=== PATIENT | female | born 1980 | race Caucasian/White ===

== ENCOUNTER 2017-02-23 13:00 | Emergency (ER) | payer MEDICAID ==
[~2017-02-23] VITALS: Ht 149.9 cm; Wt 48.0 kg
[2017-02-23 13:00] VITALS: BP 132/73; PULSE 120; RESP 16; TEMP 97.9; O2SAT 100
[~2017-02-23 13:00] MED LIST: CHLO10 PO; METH10TA PO; OXYC1SOL5 PO; PRENCAP6 PO
[2017-02-23] MEDS ORDERED: NALOXONE HCL 2 MG/2 ML VIAL ONE (13:04)
[2017-02-23 13:09] VITALS: O2SAT 100
[2017-02-23] MEDS ORDERED: SODIUM CHLOR 0.9% 1000 ML INJ 1,000 ML IV ONE (13:10)
[2017-02-23] MEDS ORDERED: SODIUM CHLORIDE 0.9% FLUSH 10 ML FLUSH IVF PRN (13:15)
--- NOTE | 2017-02-23 13:22 | PD ---
HPI Chief Complaint: Altered Mental Status Time Seen by Provider: 13:10 Travel History International Travel<30 days: No Contact w/Intl Traveler<30days: No Traveled to known affect area: No History of Present Illness HPI Middle age white female patient presents to the ER today dropped off by her friend, lethargic, slow breathing, barely responsive to pain. Patient was given Narcan in the ER with response with 4 mg. She is now awake and oriented in the ER, denies any ingestions, denies any other issues. She states that the last thing she remembered was talking to her friend in the car. Modifying Factors: None Associated Signs & Symptoms: Altered mental status, suspected overdose Risk Factors: None PFSH Past Medical History Medical History: Denies Significant Hx Influenza Vaccination: No ?: Unknown LMP: states she doesnt get period, has jonny : 2 Para: 2 Past Surgical History Surgical History: No Previous Surgery Section: Yes Social History Alcohol Use: No Tobacco Use: Yes (1 ppd) Substance Use: Yes (xanax) Allergies-Medications (Allergen,Severity, Reaction): Coded Allergies: No Known Allergies (Unverified , 02/23/17) Reported Meds & Prescriptions Reported Meds & Active Scripts Active No Active Prescriptions or Reported Medications Review of Systems ROS Limitations: Altered Mental Status Physical Exam Narrative GENERAL: Well-developed middle age white female patient who is obtunded, unresponsive to sternal rub. SKIN: Focused skin assessment warm/dry. There is notable track lopez to the left hand. HEAD: Atraumatic. Normocephalic. EYES: Pupils equal, pinpoint, and round. No scleral icterus. No injection or drainage. ENT: No nasal bleeding or discharge. Mucous membranes pink and moist. NECK: Trachea midline. No JVD. CARDIOVASCULAR: Regular rate and rhythm. No murmur appreciated. RESPIRATORY: No accessory muscle use. Clear to auscultation. Breath sounds equal bilaterally. GASTROINTESTINAL: Abdomen soft, non-tender, nondistended. Hepatic and splenic margins not palpable. MUSCULOSKELETAL: No obvious deformities. No clubbing. No cyanosis. No edema. NEUROLOGICAL: Awake and alert. No obvious cranial nerve deficits. Motor grossly within normal limits. Normal speech. PSYCHIATRIC: Appropriate mood and affect; insight and judgment normal. Data Data Last Documented VS Vital Signs Date Time Temp Pulse Resp B/P Pulse Ox O2 Delivery O2 Flow Rate FiO2 02/23/17 13:47 117 16 123/73 97 Room Air 02/23/17 13:09 15.00 100 02/23/17 13:00 97.9 Orders Naloxone Inj (Narcan Inj) (02/23/17 13:04) Electrocardiogram (02/23/17 13:10) Complete Blood Count With Diff (02/23/17 13:10) Comprehensive Metabolic Panel (02/23/17 13:10) Iv Access Insert/Monitor (02/23/17 13:10) Cath For Specimen (02/23/17 13:10) Ecg Monitoring (02/23/17 13:10) Oximetry (02/23/17 13:10) Sodium Chloride 0.9% Flush (Ns Flush) (02/23/17 13:15) Sodium Chlor 0.9% 1000 Ml Inj (Ns 1000 M (02/23/17 13:10) Drug Screen, Random Urine (02/23/17 13:10) Alcohol (Ethanol) (02/23/17 13:10) Salicylates (Aspirin) (02/23/17 13:10) Tylenol (Acetaminophen) (02/23/17 13:10) Naloxone Inj (Narcan Inj) (02/23/17 13:30) Naloxone Inj (Narcan Inj) (02/23/17 13:30) Labs Laboratory Tests Test 02/23/17 02/23/17 13:30 13:31 Urine Opiates Screen POS Urine Barbiturates Screen NEG Urine Amphetamines Screen NEG Urine Benzodiazepines Screen POS Urine Cocaine Screen NEG Urine Cannabinoids Screen POS White Blood Count 13.4 TH/MM3 Red Blood Count 4.09 MIL/MM3 Hemoglobin 12.3 GM/DL Hematocrit 36.2 % Mean Corpuscular Volume 88.7 FL Mean Corpuscular Hemoglobin 30.2 PG Mean Corpuscular Hemoglobin 34.1 % Concent Red Cell Distribution Width 15.3 % Platelet Count 295 TH/MM3 Mean Platelet Volume 8.2 FL Neutrophils (%) (Auto) 33.1 % Lymphocytes (%) (Auto) 57.4 % Monocytes (%) (Auto) 8.3 % Eosinophils (%) (Auto) 0.5 % Basophils (%) (Auto) 0.7 % Neutrophils # (Auto) 4.4 TH/MM3 Lymphocytes # (Auto) 7.7 TH/MM3 Monocytes # (Auto) 1.1 TH/MM3 Eosinophils # (Auto) 0.1 TH/MM3 Basophils # (Auto) 0.1 TH/MM3 CBC Comment AUTO DIFF Differential Total Cells 100 Counted Neutrophils % (Manual) 29 % Band Neutrophils % 1 % Lymphocytes % 64 % Monocytes % 5 % Basophils % 1 % Neutrophils # (Manual) 4.0 TH/MM3 Differential Comment FINAL DIFF MANUAL Smudge Cells PRESENT Platelet Estimate NORMAL Platelet Morphology Comment NORMAL Red Cell Morphology Comment NORMAL Sodium Level 138 MEQ/L Potassium Level 4.3 MEQ/L Chloride Level 102 MEQ/L Carbon Dioxide Level 28.2 MEQ/L Anion Gap 8 MEQ/L Blood Urea Nitrogen 10 MG/DL Creatinine 0.86 MG/DL Estimat Glomerular Filtration 57 ML/MIN Rate Random Glucose 242 MG/DL Calcium Level 8.6 MG/DL Total Bilirubin 0.3 MG/DL Aspartate Amino Transf 70 U/L (AST/SGOT) Alanine Aminotransferase 57 U/L (ALT/SGPT) Alkaline Phosphatase 108 U/L Total Protein 7.3 GM/DL Albumin 3.3 GM/DL Salicylates Level 1.8 MG/DL Acetaminophen Level LESS THAN 2.0 MCG/ML Ethyl Alcohol Level LESS THAN 3 MG/DL MDM Medical Decision Making Medical Screen Exam Complete: Yes Emergency Medical Condition: Yes Medical Record Reviewed: Yes Interpretation(s) Laboratory Tests Test 02/23/17 02/23/17 13:30 13:31 Urine Opiates Screen POS (NEG) Urine Benzodiazepines Screen POS (NEG) Urine Cannabinoids Screen POS (NEG) White Blood Count 13.4 TH/MM3 (4.0-11.0) Lymphocytes (%) (Auto) 57.4 % (9.0-44.0) Monocytes (%) (Auto) 8.3 % (0.0-8.0) Lymphocytes # (Auto) 7.7 TH/MM3 (1.0-4.8) Monocytes # (Auto) 1.1 TH/MM3 (0-0.9) Estimat Glomerular Filtration 57 ML/MIN (>89) Rate Random Glucose 242 MG/DL (74-106) Aspartate Amino Transf 70 U/L (15-37) (AST/SGOT) Alanine Aminotransferase 57 U/L (10-53) (ALT/SGPT) Albumin 3.3 GM/DL (3.4-5.0) Salicylates Level 1.8 MG/DL (2.8-20.0) Acetaminophen Level LESS THAN 2.0 MCG/ML (10.0-30.0) Differential Diagnosis Unresponsive to sternal rubalcohol intoxication versus overdose versus acute intracranial injuries Narrative Course Patient is responsive to sternal rub after 4 of Narcan was given. She is breathing normally at this point. When she awoke, she wanted to leave. She admits to having taken heroin at 11 AM. My plan would be to observe her in the ER as long as she allows me to before releasing her with follow-up to primary care physician. She has been warned that the Narcan could run out and she could go back into overdose. Patient states understanding of refused to stay for further observation. Diagnosis Primary Impression: Opiate overdose Scripts No Active Prescriptions or Reported Meds Disposition: 01 DISCHARGE HOME Condition: Stable SoonYehuda ibrahim MD Feb 23, 2017 13:22
[2017-02-23] MEDS ORDERED: NALOXONE HCL 2 MG/2 ML VIAL IV PUSH ONE ×2 (13:30)
[2017-02-23 13:47] VITALS: BP 123/73; PULSE 117; RESP 16; O2SAT 97
[2017-02-23 13:57] LABS: AUTOMATED NEUTROPHIL # 4.4 TH/MM3 (1.8-7.7); BASOPHIL # 0.1 TH/MM3 (0-0.2); BASOPHIL % 0.7 % (0.0-2.0); EOSINOPHIL # 0.1 TH/MM3 (0-0.4); EOSINOPHIL % 0.5 % (0.0-4.0); HEMATOCRIT 36.2 % (35.0-46.0); LYMPH % 57.4 % (9.0-44.0); LYMPHOCYTE # 7.7 TH/MM3 (1.0-4.8); MEAN CELL VOLUME 88.7 FL (80.0-100.0); MEAN CORPUSCULAR HEMOGLOBIN 30.2 PG (27.0-34.0); MEAN CORPUSCULAR HGB CONC 34.1 % (32.0-36.0); MONO % 8.3 % (0.0-8.0); NEUT % 33.1 % (16.0-70.0); PLATELET COUNT 295 TH/MM3 (150-450); RED BLOOD COUNT 4.09 MIL/MM3 (4.00-5.30); RED CELL DISTRIBUTION WIDTH 15.3 % (11.6-17.2); WHITE BLOOD COUNT 13.4 TH/MM3 (4.0-11.0)
[2017-02-23 13:58] LABS: HEMO FLAGS AUTO DIFF
[2017-02-23 14:03] LABS: AMPHETAMINE, URINE NEG (NEG); BARBITURATES, URINE NEG (NEG); COCAINE, URINE NEG (NEG)
[2017-02-23 14:08] LABS: ALKALINE PHOSPHATASE 108 U/L (45-117); TOTAL BILIRUBIN ADULT 0.3 MG/DL (0.2-1.0)
[2017-02-23 14:14] LABS: ACETAMINOPHEN LESS THAN 2.0 MCG/ML (10.0-30.0); ALT (GPT) 57 U/L (10-53); ANION GAP 8 MEQ/L (5-15); AST (GOT) 70 U/L (15-37); BICARBONATE 28.2 MEQ/L (21.0-32.0); BLOOD UREA NITROGEN 10 MG/DL (7-18); CHLORIDE 102 MEQ/L (98-107); GLOMERULAR FILTRATION RATE 57 ML/MIN (>89); POTASSIUM 4.3 MEQ/L (3.5-5.1); SODIUM (NA) 138 MEQ/L (136-145)
[2017-02-23 14:33] LABS: BANDS 1 % (0-6); BASOPHILS 1 % (0-2); POLYS (SEG NEUTROPHILS) 29 % (16-70); WBC DIFF SAMPLE 100
[2017-02-23 14:34] LABS: PLATELET ESTIMATE SMEAR NORMAL (NORMAL); PLATELET MORPHOLOGY NORMAL (NORMAL); SCAN/DIFF FINAL DIFF MANUAL; SMUDGE CELLS PRESENT PRESENT
[2017-02-23 15:00] VITALS: BP 132/73; PULSE 96; RESP 20; O2SAT 98
[2017-02-23 17:30] VITALS: BP 118/67; PULSE 98; RESP 20; O2SAT 99
--- NOTE | 2017-02-23 18:30 | EKG ---
Date Performed: 02/23/2017 Time Performed: 13:15:10 PTAGE: 89 years EKG: SINUS TACHYCARDIA WITH SHORT AR INTERVAL ABNORMAL RHYTHM ECG NO PREVIOUS TRACING DOCTOR: Valeriy Samuels Interpretating Date/Time 04/26/2017 14:13:46
== END 2017-02-23 18:00 | disposition home or self-care (01) ==
LOC: NEPC 13:00 → EDBD 13:00 → MERGE 13:00 → NEPC 18:00
DX: T40.1X4A Poisoning by heroin, undetermined, initial encounter (principal); F17.210 Nicotine dependence, cigarettes, uncomplicated; F13.10 Sedative, hypnotic or anxiolytic abuse, uncomplicated; Y92.89 Other specified places as the place of occurrence of the external cause
CPT/HCPCS: 80053; 80307; 85007; 85027; 93005; 96361; 96374; 99285; J2310; J7030

== ENCOUNTER 2017-03-10 12:12 | Emergency (ER) | payer MEDICAID ==
[~2017-03-10] VITALS: Ht 149.9 cm; Wt 43.0 kg
[2017-03-10 12:14] VITALS: BP 103/57; PULSE 108; RESP 24; TEMP 98.4; O2SAT 98
--- NOTE | 2017-03-10 12:26 | PD ---
Physical Exam Date Seen by Provider: March 10, 2017 Time Seen by Provider: 12:24 Narrative 36 YOWF FROM [place] FOR L HAND ABSCESS. IVDA LAST USE 1 WEEK. VSS wating for bed asignment Data Data Last Documented VS Vital Signs Date Time Temp Pulse Resp B/P Pulse Ox O2 Delivery O2 Flow Rate FiO2 03/10/17 12:14 98.4 108 24 103/57 98 Room Air [facility] Medical Record Reviewed: No Supervised Visit with DEIDRA: Waylon Ulloa March 10, 2017 12:26
--- NOTE | 2017-03-10 12:31 | PD ---
HPI . left hand abscess for 1 wk Chief Complaint: Lump, Cyst, Hernia Time Seen by Provider: 12:31 Travel History International Travel<30 days: No Contact w/Intl Traveler<30days: No Traveled to known affect area: No History of Present Illness HPI 36-year-old female who is a polysubstance abuser and recently injected dilaudid into her left hand near her thumb here with complaints of an abscess for over one week. Patient was being treated at [facility] and the abscess seems to be growing. She was sent in for further evaluation. She denies any fever or chills. She is right-hand dominant. She tells me that she is terrified of needles and is screaming prior to the procedure. PFSH Past Medical History Anxiety: Yes ?: Not : 2 Para: 2 Past Surgical History Section: Yes Social History Alcohol Use: No Tobacco Use: Yes (1 ppd) Substance Use: Yes (xanax) Allergies-Medications (Allergen,Severity, Reaction): Coded Allergies: No Known Allergies (Unverified , 03/23/15) Reported Meds & Prescriptions Reported Meds & Active Scripts Active Ibuprofen 800 Mg Tab 800 Mg PO TID Bactrim DS (Sulfamethoxazole-Trimethoprim) 800-160 Mg Tab 1 Tab PO BID Librium 10 mg Cap (Chlordiazepoxide) 10 Mg Cap 10 Mg PO Q8 Oxycodone/Acetaminophen 5-325 mg/5Ml (Oxycodone W/ Acetaminophen) 1 Tab Tab 1 Tab PO Q4H PRN Reported Methadone HCl (Methadone Hcl) 10 Mg Tab 80 Mg PO DAILY Methadone HCl (Methadone Hcl) 10 Mg Tab 10 Mg PO DAILY 1 ( Multivitamins) Cap 1 Cap PO DAILY Review of Systems General / Constitutional: No: Fever Eyes: No: Visual changes HENT: No: Headaches Cardiovascular: No: Chest Pain or Discomfort Respiratory: No: Shortness of Breath Gastrointestinal: No: Abdominal Pain Genitourinary: No: Dysuria Musculoskeletal: No: Pain Skin: Positive Other (L hand/thumb abscess), No Rash Neurologic: No: Weakness Psychiatric: No: Depression Endocrine: No: Polydipsia Hematologic/Lymphatic: No: Easy Bruising Physical Exam Narrative GENERAL: AAO x 3, no acute distress, Well-nourished, well-developed patient. SKIN: Warm and dry. No visible rashes or bruising. left thumb abscess over the 1st metacarpal joint, area is about 2 cm indurated and fluctuant, no zone of inflammation HEAD: Normocephalic and atraumatic. EYES: No scleral icterus. No injection or drainage. ENT: No nasal drainage noted. Airway patent. NECK: Supple, trachea midline. No JVD. CARDIOVASCULAR: Regular rate and rhythm without murmurs, gallops, or rubs. RESPIRATORY: Breath sounds equal bilaterally. No accessory muscle use. No rhonchi or rales. GASTROINTESTINAL: Visual inspection normal EXTREMITIES: No cyanosis or edema. ROM of b/l hands normal. flat knitter helper strength normal. BACK: Nontender without obvious deformity. No CVA tenderness. PSYCH: AAO x 3, normal affect. Data Data Last Documented VS Vital Signs Date Time Temp Pulse Resp B/P Pulse Ox O2 Delivery O2 Flow Rate FiO2 03/10/17 12:14 98.4 108 24 103/57 98 Room Air Orders Wound Culture And Gram Stain (03/10/17 12:33) Wound Care (03/10/17 12:33) Lidocaine 1% Inj (50 Ml) (Xylocaine 1% I (03/10/17 12:45) MDM Medical Decision Making Medical Screen Exam Complete: Yes Emergency Medical Condition: Yes Medical Record Reviewed: Yes Differential Diagnosis abscess, cellulitis, less likely osteomyelitis Narrative Course 36-year-old female who is a polysubstance abuser and recently injected dilaudid into her left hand near her thumb here with complaints of an abscess for over one week. Patient was being treated at [facility] and the abscess seems to be growing. She was sent in for further evaluation. She denies any fever or chills. She is right-hand dominant. She tells me that she is terrified of needles and is screaming prior to the procedure. Patient seen and examined. She does have an abscess over her left thumb. It does require incision and drainage. I have discussed the procedure with her and despite her fear of needles she has consented. Douglas harman present during entire procedure. Patient tolerated without incident. Cultures were taken. She was given bactrim and ibuprofen. General wound care was discussed with her. Advised to return if area worsening. Patient verbalized understanding of instructions, questions were answered, and thanked me for their care. I advised them if their condition worsens, please return to the nearest emergency room for further care. Procedures Procedure Narrative After the risks and benefits were discussed the following procedure was performed: INCISION AND DRAINAGE OF ABSCESS: The area was prepped and was sterilely draped. A subcutaneous wheal of 1 % Xylocaine with a total number 5 mL was used to anesthetize the area. The area was properly anesthetized. A number 11 scalpel was used to make a 0.5-cm incision across the area of the abscess. Cultures were obtained. The abscess was drained an irrigated with normal saline. Sterile dressing applied. Patient advised to perform daily dressing changes. No packing due to location and very superficial abscess . Diagnosis Primary Impression: Abscess Patient Instructions: Abscess (ED), Abscess Incision and Drainage (ED), General Instructions Additional Instructions: Circle for worsening signs of infection which include fever, increased redness , increased warmth, purulent drainage, increased swelling or streaking. If any of these develop, please go to the nearest emergency room. Please return to emergency department if your symptoms return or worsen. Follow up with your primary care provider. Take medications as prescribed. Keep area clean with soap and water daily. Perform dressing changes daily. Med/Other Pt SpecificInfo: Prescription(s) given Scripts Ibuprofen 800 Mg [id number] Mg PO TID #21 TAB Prov:Vidhi Bernal MD 03/10/17 Sulfamethoxazole-Trimethoprim (Bactrim DS)800-160 Mg Tab1 Tab PO BID #20 TAB Prov:Vidhi Bernal MD 03/10/17 Disposition: 01 DISCHARGE HOME Condition: Stable Maira Titus March 10, 2017 12:31
[2017-03-10] MEDS ORDERED: IBUP800T23 PO (12:35)
[2017-03-10] MEDS ORDERED: BACT800T5 PO (12:35)
[2017-03-10] MEDS ORDERED: LIDOCAINE HCL 1% 50 ML VIAL INFIL ONE (12:45)
== END 2017-03-10 13:04 | disposition home or self-care (01) ==
LOC: NEPK 12:12
DX: L02.512 Cutaneous abscess of left hand (principal); F17.210 Nicotine dependence, cigarettes, uncomplicated
CPT/HCPCS: 10060; 86403; 87070

== ENCOUNTER 2017-11-03 18:31 | Emergency (ER) | payer MEDICAID ==
[~2017-11-03] VITALS: Ht 149.9 cm; Wt 48.0 kg
[~2017-11-03 18:31] MED LIST changes: +BACT800T5 PO; +IBUP1TAB7 PO
[2017-11-03 18:39] VITALS: BP 115/63; PULSE 124; RESP 16; TEMP 99.5; O2SAT 96
== END 2017-11-03 19:28 | disposition left against medical advice (07) ==
LOC: NEDAMB 18:31
DX: R56.9 Unspecified convulsions (principal)
CPT/HCPCS: 99281